=== PATIENT | female | born 1995 | race Caucasian/White ===

== ENCOUNTER 2016-06-17 16:15 | Emergency (ER) | payer OTHER ==
[~2016-06-17] VITALS: Ht 157.5 cm; Wt 68.2 kg
[2016-06-17 16:28] VITALS: BP 111/60; PULSE 72; RESP 15; O2SAT 100
--- NOTE | 2016-06-17 16:36 | ED.REPORT ---
HPI-Abd Pain F Under 39 Date of Service Jun 17, 2016 ED Provider: Hever Cortes MD Pt is a 20 y/o female w/ a hx of kidney stones who reports to the ED with left flank pain that began 1.5 hrs ago while at work. Pain radiates into her lower abdomen and rates in severity at 9/10. Pt describes the pain as similar to previous kidney stones, and standing and walking helps ease the pain. Pt last had a kidney stone 3 months ago. Pt denies fever, nausea, dysuria, frequency, and urgency. Nursing Notes Stated Complaint: ABD PAIN Chief Complaint: Female Abdominal Pain Nursing Notes Reviewed: Yes (Dash Hudson not reconciled) Allergies: Coded Allergies: No Known Allergies (Unverified , 06/17/16) Scheduled PRN Ibuprofen (Ibuprofen) 600 Mg Tablet 600 MG PO TID PRN PRN For Pain Ondansetron ODT (Ondansetron ODT) 8 Mg Tab.rapdis 8 MG PO Q4H PRN PRN For Pain oxyCODONE-Acetaminophen 5-325 mg (oxyCODONE-Acetaminophen 5-325 mg) 1 Each Tablet 1-2 TAB PO Q6H PRN PRN For Pain General Time Seen by MD: 16:25 Chief Complaint Abdominal pain Hx Obtained From: Patient Arrived By: Walk-in Sudden in Onset?: Yes Onset Occurred: Just prior to arrival Symptom Duration: Since onset Progression since Onset: Gradually worsening Radiation: : Abdomen lower Severity: Current: Moderate Severity: Maximum: Moderate Recent Healthcare: No recent doctor visit, No recent hospitalization Similar Sx Previous: Yes Past Medical History Past Medical History congenital heart disease (tetralogy of fallot ) kidney stones (diagnosed in March 2016 at [facility]) Past Surgical History cardiac surgery to repair tetralogy of fallot Smoking History Unknown if Ever Smoker Social History Other Social History: Good social support, From out of town ([place]) Ambulatory Status Independent Review of Systems Constitutional: Denies: Chills, Fever GI: Reports: Abdominal pain (radiates into side, rated 9/10 in severity), Denies: Nausea Female: Reports: Urinary urgency, Denies: Dysuria, Urinary frequency Complete sys rev & neg: except as marked. Physical Exam Initial Vital Signs Vital Signs (First) Date Time Temp Pulse Resp B/P Pulse Ox O2 Delivery O2 Flow Rate FiO2 06/17/16 16:28 36.5 72 15 111/60 100 Room Air Initial VS: Unavailable, Vital signs normal Head / Eyes: Atraumatic, Normocephalic, PERRL ENT: Mucous membranes moist, Conjunctiva normal, No scleral icterus Neck: Supple, Non-tender, Full range of motion Skin: Warm, Dry, No cyanosis Neurologic: Alert, Oriented, Nonfocal Psychiatric: Mood/affect normal, Behavior normal, Normal thought content General/Constitutional: Awake, Alert, Well appearing Respiratory / Chest: Atraumatic, Breath sounds NL, Breath sounds = bilat, No respiratory distress Cardiovascular: Heart rate NL Heart Sounds / Murmur: Positive: Murmur present... (IV/) Abdomen: Atraumatic, Soft, Non-tender, No guarding, No rebound Back: Atraumatic, Inspection NL, Full range of motion, Painless range of motion , Non-tender Interpretation & Diagnostics Lab Results Interpretation Result Diagram: 06/17/16 1640 06/17/16 1640 Test 06/17/16 16:40 06/17/16 18:30 White Blood Count 8.7th/mm3 (3.8-10.1) Red Blood Count 4.41mil/mm3 (3.90-5.20) Hemoglobin 12.6g/dL (12.0-15.6) Hematocrit 37.2% (35.0-46.0) Mean Corpuscular Volume 84.4fL (81-100) Mean Corpuscular Hemoglobin 28.6pg (27.0-35.0) Mean Corpuscular Hemoglobin Concent 33.9% (32.0-37.0) Red Cell Distribution Width 13.2% (12.3-15.4) Platelet Count 288bil/L (150-400) Neutrophils (%) (Auto) 66.1% (40-74) Lymphocytes (%) (Auto) 25.7% (14-46) Monocytes (%) (Auto) 6.3% (4-12) Eosinophils (%) (Auto) 1.6% (0-5) Basophils (%) (Auto) 0.2% (0-3) Sodium Level 139mEq/L (134-144) Potassium Level 3.6mEq/L (3.5-5.2) Chloride Level 102mEq/L (97-108) Carbon Dioxide Level 23mmol/L (18-29) Blood Urea Nitrogen 8mg/dL (6-20) Creatinine 0.69mg/dL (0.57-1.00) Estimat Glomerular Filtration Rate 154mL/min (>59) Glucose Level 134mg/dL (60-99) Calcium Level 9.4mg/dL (8.5-10.1) Total Bilirubin 0.2mg/dL (0.0-1.2) Aspartate Amino Transf (AST/SGOT) 19U/L (0-50) Alanine Aminotransferase (ALT/SGPT) 13U/L (0-32) Alkaline Phosphatase 41U/L (25-150) Total Protein 7.6g/dL (6.4-8.4) Albumin 3.9g/dL (3.4-5.0) Hold Gonzales Top Tube Received (Received) Urine Color Yellow (YELLOW) Urine Appearance Clear (CLEAR,HAZY) Urine pH 5.5 (5.0-8.0) Urine Specific [place] 1.023 (1.003-1.035) Urine Protein Negativemg/dL (NEG,TRACE) Urine Glucose (UA) Negativemg/dL (NEGATIVE) Urine Ketones Negativemg/dL (NEGATIVE) Urine Occult Blood Trace (NEGATIVE) Urine Nitrite Negative (NEGATIVE) Urine Bilirubin Negative (NEGATIVE) Urine Urobilinogen Normalmg/dL (NORMAL) Urine Leukocyte Esterase Negative (NEGATIVE) Urine RBC 0-2/hpf (0-2) Urine WBC 0-5/hpf (0-5) Urine Epithelial Cells Moderate/hpf (NONE-MOD) Urine Crystals None seen (NONE SEEN) Urine Bacteria Few/hpf (NONE-FEW) Urine Hyaline Casts None/lpf (NONE) Urine Granular Casts None seen (NONE SEEN) Urine Waxy Casts None seen (NONE SEEN) Urine Red Blood Cell Casts None seen (NONE SEEN) Urine White Blood Cell Casts None seen (NONE SEEN) Urine Mucus None seen (None Seen) Urine Trichomonas None seen (NONE SEEN) Urine Yeast None (NONE SEEN) Urinalysis Comment None Urine Culture Reflexed Not indicated Lab Results Interpretation: CBC CMP UA Neg Re-Eval/Medical Decision Med Decision/Clinical Course This is a 20-year-old female presents with acute flank pain that is identical in character which she had in March with her first kidney stone. She lives in [place], so was treated at [facility], but she was found here and came from work to the intractable nature of the pain. She reports no dysuria, no additional complaints no fevers chills. On exam she is in no full moderate distress, she is afebrile and nontoxic. Abdomen is soft nontender. Given her exam vitals and history in per treatment is reasonable. I am not finding indication for additional radiation. The patient received pain and nausea medicine with clinical improvement. Her labs are normal no finding suggestive infectious component. The patient's discharged in much improved condition with routine precautions. Source of Hx: Old records Re-Evaluation/Progress #1: Time of Eval: 17:50 Patient Status: Condition improved Re-Evaluation/Progress Note: Pt rechecked. Informed pt of diagnosis plan for treatment. Awaiting urine. Discussed lab results. Re-Evaluation/Progress #2: Time of Eval: 19:45 Patient Status: Condition improved Re-Evaluation/Progress Note: Urine was negative. Patient understands and agrees with the plan to be discharged home. Discharge instructions and follow-up discussed. All questions were addressed. Return to the ED warnings given. Differential Diagnosis: Positive: Acute abdominal pain, Urolithiasis (empiric treatment), Negative: Abscess, Cholangitis, Cholecystitis, Cholelithiasis, Contusion abdominal wall, Ectopic preg ruptured, Ectopic , Pyelonephritis, Stab wound abdomen Counseled Regarding: Diagnosis, Lab results, Need for follow-up, When/why to return to ED Discharge & Departure Primary Impression: Flank pain Additional Impression: Kidney stones Disposition: Home Discharge Condition All VS Reviewed: Yes Condition: Stable Additional Instructions: 1. Symptoms are indeed very suggestive of another kidney stone, so you were treated empirically. 2. Continue to drink plenty of fluids. 3. Take ibuprofen 600mg three times a day for pain as needed 4. Take ondansetron 8mg (let dissolve under the tongue) up to every 4 hours as needed for nausea. 5. If needed for more severe pain take oxycodone/APAP 5/325 1-2 tabs u pt oevery 4-6 hours. Use sparingly. NOTE: This medication contains a narcotic and causes drowsiness. No driving for at least 4 hours after taking. 6. Follow up with your regular doctor in [place]. Referrals: OTHER,PHYSICIAN Scribe Attestation Portion of this note were transcribed by Karen Falcon and Carmen Solano. I, Dr. Cortes, personally performed the history, physcial exam, and medical decision- making: I reviewed and confirmed the accuracy for the information in the transcribed note. Signed by: sushil Roth, 06/17/161949 Signed by: Sushil Bain, 06/17/20161955 Hever Cortes MD Jun 17, 2016 16:36 CARMEN SOLANO Jun 17, 2016 16:43 Karen Falcon Jun 17, 2016 18:24
[2016-06-17] MEDS ORDERED: 0.9% Sodium Chloride 1,000 ML IV ONE (16:40)
[2016-06-17] MEDS ORDERED: Ondansetron 2 mg/mL 2 mL Inj IVPUSH ONE (16:40)
[2016-06-17] MEDS ORDERED: Ketorolac 15 mg/mL Inj IVPUSH ONE (16:40)
[2016-06-17] MEDS ORDERED: HYDROmorphone 0.5 mg/0.5 mL iSecure Syringe IVPUSH PRN (16:40)
[2016-06-17 16:50] LABS: BASOPHILS % (AUTO) 0.2 % (0-3); EOSINOPHILS % (AUTO) 1.6 % (0-5); MONOCYTES % (AUTO) 6.3 % (4-12); Mean Corpuscular Hemoglobin 28.6 pg (27.0-35.0); Mean Corpuscular Volume 84.4 fL (81-100); NEUTROPHILS % (AUTO) 66.1 % (40-74); Platelet Count 288 bil/L (150-400)
[2016-06-17] MEDS ORDERED: ONDA8TAB10 PO (18:03)
[2016-06-17] MEDS ORDERED: OXYC1TAB24 PO (18:03)
[2016-06-17] MEDS ORDERED: IBUP-1827 PO (18:03)
[2016-06-17 19:26] LABS: APPEARANCE,URINE CLEAR (CLEAR,HAZY); COLOR,URINE YELLOW (YELLOW); OCCULT BLOOD,URINE TRACE (NEGATIVE); PH,URINE 5.5 (5.0-8.0); UROBILINOGEN,URINE NORMAL (NORMAL)
[2016-06-17 19:58] VITALS: BP 117/56; PULSE 80; RESP 20; O2SAT 99
== END 2016-06-17 20:06 | disposition home or self-care (01) ==
LOC: SED 16:15
DX: N20.0 Calculus of kidney (principal); Z87.442 Personal history of urinary calculi; Z87.74 Personal history of (corrected) congenital malformations of heart and circulatory system
CPT/HCPCS: 36415; 80053; 81000; 81025; 85025; 96361; 96374; 96375; 99284; J1170; J1885; J2405; J7030